=== PATIENT | female | born 1960 | race Caucasian/White ===

== ENCOUNTER → 2016-08-16 | Outpatient (CLI) | payer OTHER ==
--- NOTE | 2016-08-17 10:23 | MM ---
Reason for exam: screening (asymptomatic). Last mammogram was performed 1 year and 2 months ago. History: Patient is postmenopausal. Family history of breast cancer in mother at age 73 and breast cancer in sister at age 40. Benign MG stereo VAD BX LT of the left breast, July 02, 2013. Physical Findings: A clinical breast exam by your physician is recommended on an annual basis and results should be correlated with mammographic findings. MG Screening Mammo w CAD Bilateral CC and MLO view(s) were taken. Prior study comparison: June 05, 2015, bilateral MG screening mammo w CAD. May 30, 2014, bilateral MG diagnostic mammo w CAD JOHN. June 19, 2013, bilateral digital screening mammo w/CAD. There are scattered fibroglandular densities. Previous mammotome biopsy in the left breast. There is no discrete abnormality. ASSESSMENT: Benign, BI-RAD 2 RECOMMENDATION: Routine screening mammogram of both breasts in 1 year.
== END | disposition home or self-care (01) ==
LOC: RADMAMWWP 10:21
PROVIDERS: ATTEND Family Medicine
DX: Z12.31 Encounter for screening mammogram for malignant neoplasm of breast (principal)

== ENCOUNTER → 2016-09-01 | Outpatient (CLI) | payer OTHER ==
[2016-09-01 10:48] LABS: Ionized Calcium 5.5 mg/dL (4.5-5.3)
[2016-09-01 11:35] LABS: Calcium 10.3 mg/dL (8.4-10.2)
== END | disposition home or self-care (01) ==
LOC: LABWHC1 10:14
PROVIDERS: ATTEND Internal Medicine Endocrinology, Diabetes & Metabolism
DX: E04.1 Nontoxic single thyroid nodule (principal)
CPT/HCPCS: 36415; 82306; 82310; 82330; 83970; 84439; 84443; 84481; 86376

== ENCOUNTER 2016-09-14 07:35 | Day surgery (SDC) | payer OTHER ==
[2016-09-09 12:00] VITALS: BMI 25.0
[~2016-09-14 07:35] MED LIST: LACTATED RINGERS 1,000 ML IV SCH; LIDOCAINE 1% 20 ML VIAL (10MG/ML) FOR IV START INTRADERMA PRN
[2016-09-14 08:00] VITALS: TEMP 98
[2016-09-14] MEDS ORDERED: PROPOFOL 10 MG/ML 20 ML VIAL IV ONE (08:29)
[2016-09-14] MEDS ORDERED: LIDOCAINE 1% INJ 10MG/ML (20 ML MDV) ONE (08:29)
--- NOTE | 2016-09-14 08:34 | P.GSHP ---
History of Present Illness H&P Date: 09/14/16 CHIEF COMPLAINT: Colon screen HISTORY OF PRESENT ILLNESS: The patient is a 56-year-old female who presents for colon screen. Lower endoscopy was offered for further evaluation and management. PAST MEDICAL HISTORY: Please see list. PAST SURGICAL HISTORY: Please see list. MEDICATIONS: Please see list. ALLERGIES: Please see list. SOCIAL HISTORY: No illicit drug use FAMILY HISTORY: No reports of Crohn disease or ulcerative colitis. REVIEW OF ORGAN SYSTEMS: CONSTITUTIONAL: No reports of fevers or chills. PHYSICAL EXAM: VITAL SIGNS: Stable GENERAL: Well-developed pleasant in no acute distress. HEENT: No scleral icterus. Extraocular movements grossly intact. Moist buccal mucosa. NECK: Supple without lymphadenopathy. CHEST: Unlabored respirations. Equal bilateral excursions. CARDIOVASCULAR: Regular rate and rhythm. Distal 2+ pulses. ABDOMEN: Soft, nontender, nondistended. MUSCULOSKELETAL: No clubbing, cyanosis, or edema. ASSESSMENT: 1. Colon screen. PLAN: 1. Recommend proceeding with a lower endoscopy Past Medical History Past Medical History: Hypertension, Osteoarthritis (OA) Additional Past Medical History / Comment(s): hx. colon polyps, constipation, neck & back pain History of Any Multi-Drug Resistant Organisms: None Reported Past Surgical History: Breast Surgery, Hysterectomy, Orthopedic Surgery, Tubal Ligation Additional Past Surgical History / Comment(s): right breast bx., repair right arm fx., cyst removed neck, colonoscopy with polyp removed Past Anesthesia/Blood Transfusion Reactions: No Reported Reaction Past Psychological History: Depression Smoking Status: Never smoker Past Alcohol Use History: None Reported Past Drug Use History: None Reported - Past Family History Mother Family Medical History: Cancer Additional Family Medical History / Comment(s): Breast and Brain Cancer. Medications and Allergies Home Medications Medication Instructions Recorded Confirmed Type Aspirin 81 mg PO DAILY 04/27/15 09/14/16 History Calcium Carbonate/Vitamin D3 1 each PO DAILY 04/27/15 09/14/16 History [Calcium 600 + Vit D Tablet] Cyclobenzaprine [Flexeril] 10 mg PO HS 04/27/15 09/14/16 History Docusate [Colace] 100 mg PO DAILY 04/27/15 09/14/16 History HYDROcodone/APAP 7.5-325MG [[place] 1 tab PO Q6HR PRN 04/27/15 09/14/16 History 7.5-325] Lisinopril [Zestril] 10 mg PO QAM 04/27/15 09/14/16 History Loratadine [Claritin] 10 mg PO HS 04/27/15 09/14/16 History Polyethylene Glycol 3350 [Miralax] 17 gm PO DAILY 04/27/15 09/14/16 History Sertraline [Zoloft] 50 mg PO HS 09/14/16 09/14/16 History traZODone HCL 50 mg PO HS 09/14/16 09/14/16 History Allergies Allergy/AdvReac Type Severity Reaction Status Date / Time clindamycin HCl Allergy Rash/Hives Verified 09/09/16 11:34 [From Cleocin] clindamycin palmitate HCl Allergy Rash/Hives Verified 09/09/16 11:34 [From Cleocin] clindamycin phosphate Allergy Rash/Hives Verified 09/09/16 11:34 [From Cleocin] Sulfa (Sulfonamide Allergy Rash/Hives Verified 09/09/16 11:34 Antibiotics) Surgical - Exam Vital Signs Temp Pulse Resp BP Pulse Ox 98.0 F 97 14 135/73 98 09/14/16 07:58 09/14/16 07:58 09/14/16 07:58 09/14/16 07:58 09/14/16 07:58
[2016-09-14 09:12] VITALS: BP 102/70; PULSE 86; RESP 16
--- NOTE | 2016-09-14 10:15 | P.PCN ---
Date of Procedure: 09/14/16 Preoperative Diagnosis: Postoperative Diagnosis: Procedure(s) Performed: Implants: Indications for Procedure: Operative Findings: Description of Procedure: PREOPERATIVE DIAGNOSIS: Colonoscopy screening. Personal history of colon polyps. POSTOPERATIVE DIAGNOSIS: Colonoscopy screening. Personal history of colon polyps. Colon polyp, sigmoid colon. External hemorrhoids. OPERATION: Colonoscopy to the ileocecal valve and appendiceal orifice. Colonoscopy with cold forceps biopsy at 20 cm from the anal verge. SURGEON: Hamida Flanagan MD. ANESTHESIA: MAC. INDICATIONS: The patient is a 56-year-old female who presents for colonoscopy screening. Her last colonoscopy was performed in 2-3 years with severe colorectal polyps. Benefits and risks were described and informed consent was obtained. DESCRIPTION OF PROCEDURE: The patient had undergone Gatorade, MiraLAX and Dulcolax prep. She had been brought into the operating room and laid in the left lateral decubitus position. After adequate intravenous sedation, the rectum was examined with 2% lidocaine jelly. External hemorrhoids were encountered. The rectal tone was within normal limits. No lesions were palpated in the rectal vault. An Olympus colonoscope was advanced until the ileocecal valve and appendiceal orifice were clearly viewed. Abdominal wall pressure was required to advance the scope. The prep was excellent with clear visualization of the mucosal folds. The scope was removed with visualization of each mucosal fold. No scattered diverticulosis was encountered. At 20 cm from the anal verge, a 3 mm hyperplastic polyp was cold forceps biopsy to completion. No evidence of focal colitis was found. Grade 3 internal/external hemorrhoids without active bleeding or inflammation was found. The colon was desufflated. The patient had tolerated the procedure well. Withdrawal time was over 6 minutes. FINDINGS: Internal hemorrhoids, grade 3 External prolapsed hemorrhoids. At 20 cm from the anal verge, a 3 mm hyperplastic polyp was cold forceps biopsy to completion. No arteriovenous malformations. No focal colitis. RECOMMENDATIONS: Lower endoscopy in 3 years (2019) with high risk colon polyp history. Plan - Discharge Summary New Discharge Prescriptions: No Action Loratadine [Claritin] 10 mg PO HS Lisinopril [Zestril] 10 mg PO QAM HYDROcodone/APAP 7.5-325MG [[place] 7.5-325] 1 tab PO Q6HR PRN PRN Reason: Pain Cyclobenzaprine [Flexeril] 10 mg PO HS Polyethylene Glycol 3350 [Miralax] 17 gm PO DAILY Docusate [Colace] 100 mg PO DAILY Aspirin 81 mg PO DAILY Calcium Carbonate/Vitamin D3 [Calcium 600 + Vit D Tablet] 1 each PO DAILY traZODone HCL 50 mg PO HS Sertraline [Zoloft] 50 mg PO HS Discharge Medication List Aspirin 81 mg PO DAILY 04/27/15 [History] Calcium Carbonate/Vitamin D3 [Calcium 600 + Vit D Tablet] 1 each PO DAILY [History] Cyclobenzaprine [Flexeril] 10 mg PO HS 04/27/15 [History] Docusate [Colace] 100 mg PO DAILY 04/27/15 [History] HYDROcodone/APAP 7.5-325MG [[place] 7.5-325] 1 tab PO Q6HR PRN 04/27/15 [History] Lisinopril [Zestril] 10 mg PO QAM 04/27/15 [History] Loratadine [Claritin] 10 mg PO HS 04/27/15 [History] Polyethylene Glycol 3350 [Miralax] 17 gm PO DAILY 04/27/15 [History] Sertraline [Zoloft] 50 mg PO HS 09/14/16 [History] traZODone HCL 50 mg PO HS 09/14/16 [History] Follow up Appointment(s)/Referral(s): Hamida Flanagan MD [STAFF PHYSICIAN] - 09/27/16 10:40 am Patient Instructions/Handouts: *Surgery [facility] - (Anesthesia) Endoscopy Discharge Instructions, Colonoscopy (DC), Hemorrhoids (GEN), Colorectal Polyps (GEN) Discharge Disposition: HOME SELF-CARE
== END 2016-09-14 09:32 | disposition home or self-care (01) ==
LOC: ORWHC2ENDO 07:35
PROVIDERS: ATTEND Surgery Plastic and Reconstructive Surgery
DX: Z12.11 Encounter for screening for malignant neoplasm of colon (principal); K63.5 Polyp of colon; K64.2 Third degree hemorrhoids; K64.8 Other hemorrhoids; Z86.010 Personal history of colon polyps; I10 Essential (primary) hypertension; M19.90 Unspecified osteoarthritis, unspecified site; F32.9 Major depressive disorder, single episode, unspecified; Z79.82 Long term (current) use of aspirin; Z79.899 Other long term (current) drug therapy; Z88.1 Allergy status to other antibiotic agents; Z88.2 Allergy status to sulfonamides
CPT/HCPCS: 88305; 45380; J2001; J2704

== ENCOUNTER 2016-10-17 12:27 | Emergency (ER) | payer OTHER ==
[2016-10-17 12:37] VITALS: TEMP 98.4
[2016-10-17] MEDS ORDERED: RX INFO: IV CONTRAST WAS GIVEN 1 EACH MISC MISCELLANE PRN (14:10)
[2016-10-17] MEDS ORDERED: MORPHINE SULFATE 4 MG/ML SYRINGE IV STA (14:10)
--- NOTE | 2016-10-17 14:13 | ED ---
General Adult HPI - General Chief complaint: Abdominal Pain Stated complaint: Right Side Pain Time Seen by Provider: 10/17/16 14:05 Source: patient, RN notes reviewed Mode of arrival: ambulatory Limitations: no limitations - History of Present Illness Initial comments: Patient is a pleasant 36-year-old female presenting to the emergency Department with abdominal discomfort. Symptoms started towards the back and wrap around. There may be some minimal involvement of the left side of her majority of the problems on the right side. Patient did have colonoscopy done over a month ago. Symptoms have been present for the past 2 weeks. There was at least 2 weeks in between colonoscopy and onset of symptoms. No associated nausea vomiting. No constipation or diarrhea. No history of similar symptoms previously. No dysuria or hematuria. - Related Data Home Medications Medication Instructions Recorded Confirmed Aspirin 81 mg PO DAILY 04/27/15 10/17/16 Calcium Carbonate/Vitamin D3 1 each PO DAILY 04/27/15 10/17/16 [Calcium 600 + Vit D Tablet] Cyclobenzaprine [Flexeril] 10 mg PO HS 04/27/15 10/17/16 Docusate [Colace] 100 mg PO DAILY PRN 04/27/15 10/17/16 HYDROcodone/APAP 7.5-325MG [[place] 1 tab PO Q6HR PRN 04/27/15 10/17/16 7.5-325] Lisinopril [Zestril] 10 mg PO DAILY 04/27/15 10/17/16 Loratadine [Claritin] 10 mg PO HS 04/27/15 10/17/16 Sertraline [Zoloft] 50 mg PO HS 09/14/16 10/17/16 traZODone HCL 50 mg PO HS 09/14/16 10/17/16 Atorvastatin [Lipitor] 10 mg PO HS 10/17/16 10/17/16 cloNIDine HCL [Catapres] 0.1 mg PO BID 10/17/16 10/17/16 Previous Rx's Medication Instructions Recorded Bisacodyl [Dulcolax] 5 mg PO DAILY #30 tablet. 09/27/16 Allergies Allergy/AdvReac Type Severity Reaction Status Date / Time clindamycin HCl Allergy Rash/Hives Verified 10/17/16 14:33 [From Cleocin] clindamycin palmitate HCl Allergy Rash/Hives Verified 10/17/16 14:33 [From Cleocin] clindamycin phosphate Allergy Rash/Hives Verified 10/17/16 14:33 [From Cleocin] Sulfa (Sulfonamide Allergy Rash/Hives Verified 10/17/16 14:33 Antibiotics) Review of Systems ROS Statement: Those systems with pertinent positive or pertinent negative responses have been documented in the HPI. ROS Other: All systems not noted in ROS Statement are negative. Constitutional: Denies: fever Eyes: Denies: eye pain ENT: Denies: ear pain Respiratory: Denies: cough Cardiovascular: Denies: chest pain Endocrine: Denies: fatigue Gastrointestinal: Reports: abdominal pain. Denies: nausea, vomiting, diarrhea, constipation Genitourinary: Denies: dysuria, hematuria Musculoskeletal: Reports: back pain (Patient has chronic back pain however is also having some right-sided back pain associated with the abdominal pain) Skin: Denies: rash Neurological: Denies: weakness Past Medical History Past Medical History: GERD/Reflux, Hyperlipidemia, Hypertension Additional Past Medical History / Comment(s): hx. colon polyps, constipation, neck & back pain History of Any Multi-Drug Resistant Organisms: None Reported Past Surgical History: Breast Surgery, Hysterectomy, Orthopedic Surgery, Tubal Ligation Additional Past Surgical History / Comment(s): right breast bx., repair right arm fx., cyst removed neck, colonoscopy with polyp removed Past Anesthesia/Blood Transfusion Reactions: No Reported Reaction Smoking Status: Never smoker Past Alcohol Use History: None Reported Past Drug Use History: None Reported - Past Family History Mother Family Medical History: Cancer General Exam Limitations: no limitations General appearance: alert, in no apparent distress Head exam: Present: atraumatic Eye exam: Present: normal appearance, PERRL ENT exam: Present: normal oropharynx Neck exam: Present: normal inspection Respiratory exam: Present: normal lung sounds bilaterally Cardiovascular Exam: Present: regular rate, normal rhythm Expanded Peripheral pulses: 2+: Dorsalis Pedis (R), Dorsalis Pedis (L) GI/Abdominal exam: Present: soft, tenderness (Mild tenderness suprapubic and right upper quadrant. Moderate tenderness right lower quadrant), guarding ( Mild guarding right lower quadrant), normal bowel sounds. Absent: distended, rebound, rigid, pulsatile mass Extremities exam: Present: normal inspection Back exam: Present: tenderness (Mild tenderness right paralumbar region) Neurological exam: Present: alert Psychiatric exam: Present: normal affect, normal mood Skin exam: Present: normal color Course Vital Signs 10/17/16 12:35 Temperature 98.4 F Pulse Rate 100 Respiratory 18 Rate Blood Pressure 135/90 O2 Sat by Pulse 97 Oximetry Medical Decision Making - Medical Decision Making Patient reevaluated and improved. Abdomen soft with mild right upper quadrant tenderness. Patient states she does have known history of gallstones. Patient is comfortable with discharge and agreeable to follow-up. - Lab Data Result diagrams: 10/17/16 14:35 10/17/16 14:35 Lab Results 10/17/16 10/17/16 10/17/16 Range/Units 14:35 14:35 14:35 WBC 5.7 (3.8-10.6) k/uL RBC 4.57 (3.80-5.40) m/uL Hgb 13.1 (11.4-16.0) gm/dL Hct 41.5 (34.0-46.0) % MCV 90.8 (80.0-100.0) fL MCH 28.6 (25.0-35.0) pg MCHC 31.5 (31.0-37.0) g/dL RDW 14.0 (11.5-15.5) % Plt Count 291 (150-450) k/uL Neutrophils % 58 % Lymphocytes % 33 % Monocytes % 5 % Eosinophils % 2 % Basophils % 1 % Neutrophils # 3.3 (1.3-7.7) k/uL Lymphocytes # 1.9 (1.0-4.8) k/uL Monocytes # 0.3 (0-1.0) k/uL Eosinophils # 0.1 (0-0.7) k/uL Basophils # 0.0 (0-0.2) k/uL PT 10.0 (9.0-12.0) sec INR 1.0 (<1.2) APTT 24.3 (22.0-30.0) sec Sodium 141 (137-145) mmol/L Potassium 4.0 (3.5-5.1) mmol/L Chloride 105 (98-107) mmol/L Carbon Dioxide 26 (22-30) mmol/L Anion Gap 10 mmol/L BUN 8 (7-17) mg/dL Creatinine 0.68 (0.52-1.04) mg/dL Est GFR (MDRD) Af Amer >60 (>60 ml/min/1.73 sqM) Est GFR (MDRD) Non-Af >60 (>60 ml/min/1.73 sqM) Glucose 84 (74-99) mg/dL Calcium 10.0 (8.4-10.2) mg/dL Total Bilirubin 0.3 (0.2-1.3) mg/dL AST 23 (14-36) U/L ALT 34 (9-52) U/L Alkaline Phosphatase 77 (38-126) U/L Total Protein 7.6 (6.3-8.2) g/dL Albumin 4.4 (3.5-5.0) g/dL Amylase 47 (30-110) U/L Lipase 50 (23-300) U/L Urine Color Urine Appearance (Clear) Urine pH (5.0-8.0) Ur Specific [place] (1.001-1.035) Urine Protein (Negative) Urine Glucose (UA) (Negative) Urine Ketones (Negative) Urine Blood (Negative) Urine Nitrite (Negative) Urine Bilirubin (Negative) Urine Urobilinogen (<2.0) mg/dL Ur Leukocyte Esterase (Negative) Urine WBC (0-5) /hpf Ur Squamous Epith Cells (0-4) /hpf Urine Bacteria (None) /hpf 10/17/16 Range/Units 14:35 WBC (3.8-10.6) k/uL RBC (3.80-5.40) m/uL Hgb (11.4-16.0) gm/dL Hct (34.0-46.0) % MCV (80.0-100.0) fL MCH (25.0-35.0) pg MCHC (31.0-37.0) g/dL RDW (11.5-15.5) % Plt Count (150-450) k/uL Neutrophils % % Lymphocytes % % Monocytes % % Eosinophils % % Basophils % % Neutrophils # (1.3-7.7) k/uL Lymphocytes # (1.0-4.8) k/uL Monocytes # (0-1.0) k/uL Eosinophils # (0-0.7) k/uL Basophils # (0-0.2) k/uL PT (9.0-12.0) sec INR (<1.2) APTT (22.0-30.0) sec Sodium (137-145) mmol/L Potassium (3.5-5.1) mmol/L Chloride (98-107) mmol/L Carbon Dioxide (22-30) mmol/L Anion Gap mmol/L BUN (7-17) mg/dL Creatinine (0.52-1.04) mg/dL Est GFR (MDRD) Af Amer (>60 ml/min/1.73 sqM) Est GFR (MDRD) Non-Af (>60 ml/min/1.73 sqM) Glucose (74-99) mg/dL Calcium (8.4-10.2) mg/dL Total Bilirubin (0.2-1.3) mg/dL AST (14-36) U/L ALT (9-52) U/L Alkaline Phosphatase (38-126) U/L Total Protein (6.3-8.2) g/dL Albumin (3.5-5.0) g/dL Amylase (30-110) U/L Lipase (23-300) U/L Urine Color Light Yellow Urine Appearance Clear (Clear) Urine pH 7.0 (5.0-8.0) Ur Specific [place] 1.005 (1.001-1.035) Urine Protein Negative (Negative) Urine Glucose (UA) Negative (Negative) Urine Ketones Negative (Negative) Urine Blood Negative (Negative) Urine Nitrite Negative (Negative) Urine Bilirubin Negative (Negative) Urine Urobilinogen <2.0 (<2.0) mg/dL Ur Leukocyte Esterase Large H (Negative) Urine WBC 9 H (0-5) /hpf Ur Squamous Epith Cells 3 (0-4) /hpf Urine Bacteria Occasional H (None) /hpf - Radiology Data Radiology results: report reviewed (Computed tomography scan abdomen pelvis shows cholelithiasis and spondylosis with grade 1 anterolisthesis L5-S1.) Disposition Clinical Impression: Abdominal pain, Cholelithiasis Disposition: HOME SELF-CARE Condition: Stable Instructions: Abdominal Pain (ED), Gallstones (ED) Additional Instructions: Please follow-up with primary care physician and surgeon this week. Return for increased pain, fever, vomiting, worsening or changing symptoms or other concerns. Referrals: Elton Kessler DO [Primary Care Provider] - 1-2 days Lynn Greenberg MD [STAFF PHYSICIAN] - 1-2 days Time of Disposition: 16:08
[2016-10-17 14:50] LABS: Appearance,Urine Clear (Clear); Bacteria,Urine Occasional /hpf; Bilirubin,Urine Negative (Negative); Glucose,Urine (UA) Negative (Negative); Ketones,Urine Negative (Negative); Leukocyte Esterase,Urine Large (Negative); Nitrite,Urine Negative (Negative); Particle Count 4251; Protein,Urine Negative (Negative); Specific Gravity,Urine 1.005 (1.001-1.035); Squamous Epithelial Cell,Urine 3 /hpf (0-4); UA Billing (MACRO vs. MICRO) MICRO; Urobilinogen,Urine <2.0 mg/dL (<2.0); WBC,Urine 9 /hpf (0-5)
[2016-10-17 14:51] LABS: Basophils % (A) 1 %; CH 29.8; Eosinophils # (A) 0.1 k/uL (0-0.7); Eosinophils % (A) 2 %; HCT 41.5 % (34.0-46.0); HGB 13.1 gm/dL (11.4-16.0); Luc # (Auto) 0.09; Luc % (Auto) 2; Lymphocytes # (A) 1.9 k/uL (1.0-4.8); Lymphocytes % (A) 33 %; MCH 28.6 pg (25.0-35.0); MCHC 31.5 g/dL (31.0-37.0); MCV 90.8 fL (80.0-100.0); Mean Platelet Volume 7.1; Monocytes # (A) 0.3 k/uL (0-1.0); Monocytes % (A) 5 %; Neutrophils # (A) 3.3 k/uL (1.3-7.7); Neutrophils % (A) 58 %; RBC 4.57 m/uL (3.80-5.40); WBC 5.7 k/uL (3.8-10.6); WBC (Perox) 5.64
[2016-10-17 14:58] LABS: ALT 34 U/L (9-52); AST 23 U/L (14-36); Alkaline Phosphatase 77 U/L (38-126); Amylase 47 U/L (30-110); Anion Gap 10 mmol/L; Blood Urea Nitrogen 8 mg/dL (7-17); Carbon Dioxide 26 mmol/L (22-30); Chloride 105 mmol/L (98-107); Glucose 84 mg/dL (74-99); Non-African American GFR(MDRD) >60 (>60 ml/min/1.73 sqM); Partial Thromboplastin Time 24.3 sec (22.0-30.0); Sodium 141 mmol/L (137-145); Total Bilirubin 0.3 mg/dL (0.2-1.3); Total Protein 7.6 g/dL (6.3-8.2)
--- NOTE | 2016-10-17 15:50 | CT ---
EXAMINATION TYPE: CT abdomen pelvis w con DATE OF EXAM: 10/17/2016 COMPARISON: NONE HISTORY: Right sided pain x [address] DLP: 1341.00 mGycm Automated exposure control for dose reduction was used. CONTRAST: CT scan of the abdomen pelvis is performed with IV Contrast, patient injected with 100 mL of Omnipaqu e 300. FINDINGS- LUNG BASES- No significant abnormality is appreciated. LIVER/GB-multiple gallstones noted. PANCREAS- No gross abnormality is seen. SPLEEN- No gross abnormality is seen. ADRENALS- No gross abnormality is seen. KIDNEYS/BLADDER- no hydronephrosis nephrolithiasis or renal mass. BOWEL- no bowel dilatation. Normal appendix. Cecum does extend across the midline within the pelvis from right to left. LYMPH NODES- No greater than 1cm abdominal or pelvic lymph nodes are appreciated. OSSEOUS STRUCTURES-degenerative change of the spine. Marked facet arthropathy lower lumbar spine. Fin dings suspicious for pars stress defect of L5 with minimal anterolisthesis. Arthropathy of the hips. OTHER- vascular phleboliths in the pelvic. Vascular calcifications noted. IMPRESSION- 1. Cholelithiasis. 2. Findings suggestive of bilateral spondylolysis with minimal grade 1 anterolisthesis L5 on S1.
[2016-10-17 16:34] VITALS: BP 126/75; PULSE 94; RESP 16
== END 2016-10-17 16:33 | disposition home or self-care (01) ==
LOC: EC 12:27
DX: K80.20 Calculus of gallbladder without cholecystitis without obstruction (principal); M43.16 Spondylolisthesis, lumbar region; E78.5 Hyperlipidemia, unspecified; I10 Essential (primary) hypertension; Z90.710 Acquired absence of both cervix and uterus; Z98.51 Tubal ligation status; Z79.82 Long term (current) use of aspirin; Z79.899 Other long term (current) drug therapy
CPT/HCPCS: 99284 ×2; 96374 ×2; 36415; 80053; 82150; 83690; 85025; 85610; 85730; 81001; 87086; 74177; J2270; Q9967

== ENCOUNTER 2016-10-19 13:22 | Emergency (ER) | payer OTHER ==
[2016-10-19 13:39] VITALS: RESP 18
[2016-10-19] MEDS ORDERED: SODIUM CHLORIDE 0.9% 2,000 ML IV STA (14:52)
[2016-10-19] MEDS ORDERED: HYDROmorphone 1 MG/ML 1 ML SYRINGE IVP STA (15:11)
--- NOTE | 2016-10-19 15:18 | ED ---
Abdominal Pain HPI - General Chief Complaint: Abdominal Pain Stated Complaint: Gall bladder pain Time Seen by Provider: 10/19/16 14:21 Source: patient, RN notes reviewed, old records reviewed Mode of arrival: wheelchair Limitations: no limitations - History of Present Illness Initial Comments: Is a 56-year-old female presents emergency Department chief complaint of increased right upper quadrant pain. Patient seen in emergency department 2 days ago and was diagnosed with cholelithiasis. Patient states that the pain is now unbearable. She reports she called the surgeon to follow-up however the surgeon is out of town and she cannot have an appointment until mid October. Patient states that she is unable to eat anything without severe pain. She states it mainly is in the right upper quadrant occasionally radiate towards her back. She denies any vomiting but feels extremely nauseated. Denies any change in her bowel movements. - Related Data Home Medications Medication Instructions Recorded Confirmed Aspirin 81 mg PO DAILY 04/27/15 10/19/16 Calcium Carbonate/Vitamin D3 1 each PO DAILY 04/27/15 10/19/16 [Calcium 600 + Vit D Tablet] Cyclobenzaprine [Flexeril] 10 mg PO HS 04/27/15 10/19/16 Docusate [Colace] 100 mg PO DAILY PRN 04/27/15 10/19/16 HYDROcodone/APAP 7.5-325MG [[place] 1 tab PO Q6HR PRN 04/27/15 10/19/16 7.5-325] Lisinopril [Zestril] 10 mg PO DAILY 04/27/15 10/19/16 Loratadine [Claritin] 10 mg PO HS 04/27/15 10/19/16 Sertraline [Zoloft] 50 mg PO HS 09/14/16 10/19/16 traZODone HCL 50 mg PO HS 09/14/16 10/19/16 Atorvastatin [Lipitor] 10 mg PO HS 10/17/16 10/19/16 cloNIDine HCL [Catapres] 0.1 mg PO BID 10/17/16 10/19/16 Previous Rx's Medication Instructions Recorded Bisacodyl [Dulcolax] 5 mg PO DAILY #30 tablet. 09/27/16 HYDROcodone/APAP 5-325MG [[place] 1 tab PO Q6HR PRN #12 tab 10/19/16 5-325] Naproxen 500 mg PO BID #20 tablet 10/19/16 Ondansetron Odt [Zofran Odt] 4 mg PO Q8HR PRN #12 tab 10/19/16 Allergies Allergy/AdvReac Type Severity Reaction Status Date / Time clindamycin HCl Allergy Rash/Hives Verified 10/19/16 14:50 [From Cleocin] clindamycin palmitate HCl Allergy Rash/Hives Verified 10/19/16 14:50 [From Cleocin] clindamycin phosphate Allergy Rash/Hives Verified 10/19/16 14:50 [From Cleocin] Sulfa (Sulfonamide Allergy Rash/Hives Verified 10/19/16 14:50 Antibiotics) Review of Systems ROS Statement: Those systems with pertinent positive or pertinent negative responses have been documented in the HPI. ROS Other: All systems not noted in ROS Statement are negative. Past Medical History Past Medical History: GERD/Reflux, Hyperlipidemia, Hypertension Additional Past Medical History / Comment(s): hx. colon polyps, constipation, neck & back pain History of Any Multi-Drug Resistant Organisms: None Reported Past Surgical History: Breast Surgery, Hysterectomy, Orthopedic Surgery, Tubal Ligation Additional Past Surgical History / Comment(s): right breast bx., repair right arm fx., cyst removed neck, colonoscopy with polyp removed Past Anesthesia/Blood Transfusion Reactions: No Reported Reaction Past Psychological History: No Psychological Hx Reported Smoking Status: Never smoker Past Alcohol Use History: None Reported Past Drug Use History: None Reported - Past Family History Mother Family Medical History: Cancer General Exam - General Exam Comments Initial Comments: This is a 56-year-old female. Patient is on appear to be in any acute distress. Limitations: no limitations General appearance: alert, in no apparent distress Head exam: Present: atraumatic, normocephalic, normal inspection Eye exam: Present: normal appearance, PERRL, EOMI. Absent: scleral icterus, conjunctival injection, periorbital swelling ENT exam: Present: normal exam, mucous membranes moist Neck exam: Present: normal inspection. Absent: tenderness, meningismus, lymphadenopathy Respiratory exam: Present: normal lung sounds bilaterally. Absent: respiratory distress, wheezes, rales, rhonchi, stridor Cardiovascular Exam: Present: regular rate, normal rhythm, normal heart sounds. Absent: systolic murmur, diastolic murmur, rubs, gallop, clicks GI/Abdominal exam: Present: soft, tenderness (Patient has some right upper quadrant tenderness on deep palpation.), normal bowel sounds. Absent: distended , guarding, rebound, rigid Extremities exam: Present: normal inspection, full ROM, normal capillary refill. Absent: tenderness, pedal edema, joint swelling, calf tenderness Back exam: Present: normal inspection Neurological exam: Present: alert, oriented X3, CN II-XII intact Psychiatric exam: Present: normal affect, normal mood Skin exam: Present: warm, dry, intact, normal color. Absent: rash Course Vital Signs 10/19/16 13:37 Temperature 98.0 F Pulse Rate 95 Respiratory 18 Rate Blood Pressure 123/83 O2 Sat by Pulse 98 Oximetry Medical Decision Making - Medical Decision Making 56-year-old female with chief complaint of increased right upper quadrant abdominal pain. She was seen here yesterday and diagnosed with cholelithiasis after CAT scan. She reports that she try to follow-up with a surgeon sooner but they could not get her in. They stated that she needed to come to the emergency department if pain is worsening. The pain getting worse she did sign 7 today. Blood work was reviewed and was similar compared to 2 days ago. No evidence of leukocytosis. A bladder ultrasound shows no evidence of acute cholecystitis, normal gallbladder wall thickening. No obstructing or dilated common bile duct. Patient will be discharged at this time with a prescription for pain medication. Discussed the importance of biliary colic diet. Patient agrees to treatment plan will comply. Return parameters were discussed. - Lab Data Result diagrams: 10/19/16 15:04 10/19/16 15:04 Lab Results 10/19/16 10/19/16 10/19/16 Range/Units 15:04 15:04 15:04 WBC 5.8 (3.8-10.6) k/uL RBC 4.59 (3.80-5.40) m/uL Hgb 13.6 (11.4-16.0) gm/dL Hct 40.7 (34.0-46.0) % MCV 88.6 (80.0-100.0) fL MCH 29.6 (25.0-35.0) pg MCHC 33.4 (31.0-37.0) g/dL RDW 13.4 (11.5-15.5) % Plt Count 280 (150-450) k/uL Neutrophils % 60 % Lymphocytes % 30 % Monocytes % 5 % Eosinophils % 2 % Basophils % 1 % Neutrophils # 3.5 (1.3-7.7) k/uL Lymphocytes # 1.8 (1.0-4.8) k/uL Monocytes # 0.3 (0-1.0) k/uL Eosinophils # 0.1 (0-0.7) k/uL Basophils # 0.0 (0-0.2) k/uL PT 10.1 (9.0-12.0) sec INR 1.0 (<1.2) APTT 25.0 (22.0-30.0) sec Sodium 141 (137-145) mmol/L Potassium 4.2 (3.5-5.1) mmol/L Chloride 105 (98-107) mmol/L Carbon Dioxide 27 (22-30) mmol/L Anion Gap 9 mmol/L BUN 10 (7-17) mg/dL Creatinine 0.70 (0.52-1.04) mg/dL Est GFR (MDRD) Af Amer >60 (>60 ml/min/1.73 sqM) Est GFR (MDRD) Non-Af >60 (>60 ml/min/1.73 sqM) Glucose 85 (74-99) mg/dL Calcium 10.2 (8.4-10.2) mg/dL Total Bilirubin 0.5 (0.2-1.3) mg/dL AST 25 (14-36) U/L ALT 31 (9-52) U/L Alkaline Phosphatase 80 (38-126) U/L Total Protein 7.3 (6.3-8.2) g/dL Albumin 4.4 (3.5-5.0) g/dL Amylase 37 (30-110) U/L Lipase 43 (23-300) U/L Urine Color Urine Appearance (Clear) Urine pH (5.0-8.0) Ur Specific [place] (1.001-1.035) Urine Protein (Negative) Urine Glucose (UA) (Negative) Urine Ketones (Negative) Urine Blood (Negative) Urine Nitrite (Negative) Urine Bilirubin (Negative) Urine Urobilinogen (<2.0) mg/dL Ur Leukocyte Esterase (Negative) Urine RBC (0-5) /hpf Urine WBC (0-5) /hpf Ur Squamous Epith Cells (0-4) /hpf 10/19/16 Range/Units 15:04 WBC (3.8-10.6) k/uL RBC (3.80-5.40) m/uL Hgb (11.4-16.0) gm/dL Hct (34.0-46.0) % MCV (80.0-100.0) fL MCH (25.0-35.0) pg MCHC (31.0-37.0) g/dL RDW (11.5-15.5) % Plt Count (150-450) k/uL Neutrophils % % Lymphocytes % % Monocytes % % Eosinophils % % Basophils % % Neutrophils # (1.3-7.7) k/uL Lymphocytes # (1.0-4.8) k/uL Monocytes # (0-1.0) k/uL Eosinophils # (0-0.7) k/uL Basophils # (0-0.2) k/uL PT (9.0-12.0) sec INR (<1.2) APTT (22.0-30.0) sec Sodium (137-145) mmol/L Potassium (3.5-5.1) mmol/L Chloride (98-107) mmol/L Carbon Dioxide (22-30) mmol/L Anion Gap mmol/L BUN (7-17) mg/dL Creatinine (0.52-1.04) mg/dL Est GFR (MDRD) Af Amer (>60 ml/min/1.73 sqM) Est GFR (MDRD) Non-Af (>60 ml/min/1.73 sqM) Glucose (74-99) mg/dL Calcium (8.4-10.2) mg/dL Total Bilirubin (0.2-1.3) mg/dL AST (14-36) U/L ALT (9-52) U/L Alkaline Phosphatase (38-126) U/L Total Protein (6.3-8.2) g/dL Albumin (3.5-5.0) g/dL Amylase (30-110) U/L Lipase (23-300) U/L Urine Color Light Yellow Urine Appearance Clear (Clear) Urine pH 7.0 (5.0-8.0) Ur Specific [place] 1.004 (1.001-1.035) Urine Protein Negative (Negative) Urine Glucose (UA) Negative (Negative) Urine Ketones Negative (Negative) Urine Blood Negative (Negative) Urine Nitrite Negative (Negative) Urine Bilirubin Negative (Negative) Urine Urobilinogen <2.0 (<2.0) mg/dL Ur Leukocyte Esterase Large H (Negative) Urine RBC 1 (0-5) /hpf Urine WBC 7 H (0-5) /hpf Ur Squamous Epith Cells 4 (0-4) /hpf - Radiology Data Radiology results: report reviewed Gallbladder ultrasound shows evidence of cholelithiasis. No evidence of acute cholecystitis, no evidence of gallbladder wall thickening. Disposition Clinical Impression: Cholelithiases, Biliary colic Disposition: HOME SELF-CARE Condition: Good Instructions: Biliary Colic (ED), Gallstones (ED) Additional Instructions: Patient advised to follow-up with primary care physician and forensic specialist. Patient needs to avoid if diet with greasy foods. Take the medications as prescribed. Return to emergency department if any alarming signs or symptoms occur. Prescriptions: HYDROcodone/APAP 5-325MG [[place] 5-325] 1 tab PO Q6HR PRN #12 tab PRN Reason: Pain Naproxen 500 mg PO BID #20 tablet Ondansetron Odt [Zofran Odt] 4 mg PO Q8HR PRN #12 tab PRN Reason: Nausea Referrals: Elton Kessler DO [Primary Care Provider] - 1-2 days Sandi Fuller DO [Doctor of Osteopathic Medicine] - 1-2 days Time of Disposition: 16:30
[2016-10-19 15:22] LABS: Appearance,Urine Clear (Clear); Bilirubin,Urine Negative (Negative); Glucose,Urine (UA) Negative (Negative); Ketones,Urine Negative (Negative); Leukocyte Esterase,Urine Large (Negative); Nitrite,Urine Negative (Negative); Particle Count 2653; Protein,Urine Negative (Negative); RBC,Urine 1 /hpf (0-5); Specific Gravity,Urine 1.004 (1.001-1.035); Squamous Epithelial Cell,Urine 4 /hpf (0-4); UA Billing (MACRO vs. MICRO) MICRO; Urobilinogen,Urine <2.0 mg/dL (<2.0); WBC,Urine 7 /hpf (0-5)
[2016-10-19 15:28] LABS: ALT 31 U/L (9-52); AST 25 U/L (14-36); Alkaline Phosphatase 80 U/L (38-126); Amylase 37 U/L (30-110); Anion Gap 9 mmol/L; Blood Urea Nitrogen 10 mg/dL (7-17); Calcium 10.2 mg/dL (8.4-10.2); Carbon Dioxide 27 mmol/L (22-30); Chloride 105 mmol/L (98-107); Glucose 85 mg/dL (74-99); Non-African American GFR(MDRD) >60 (>60 ml/min/1.73 sqM); Potassium 4.2 mmol/L (3.5-5.1); Sodium 141 mmol/L (137-145); Total Bilirubin 0.5 mg/dL (0.2-1.3); Total Protein 7.3 g/dL (6.3-8.2)
[2016-10-19 15:29] LABS: Prothrombin Time 10.1 sec (9.0-12.0)
[2016-10-19 15:30] LABS: Basophils % (A) 1 %; CHCM 32.9; Eosinophils # (A) 0.1 k/uL (0-0.7); Eosinophils % (A) 2 %; HCT 40.7 % (34.0-46.0); HDW 2.21; HGB 13.6 gm/dL (11.4-16.0); Luc # (Auto) 0.11; Luc % (Auto) 2; Lymphocytes # (A) 1.8 k/uL (1.0-4.8); Lymphocytes % (A) 30 %; MCH 29.6 pg (25.0-35.0); MCHC 33.4 g/dL (31.0-37.0); MCV 88.6 fL (80.0-100.0); Mean Platelet Volume 6.8; Monocytes # (A) 0.3 k/uL (0-1.0); Monocytes % (A) 5 %; Neutrophils # (A) 3.5 k/uL (1.3-7.7); Neutrophils % (A) 60 %; RBC 4.59 m/uL (3.80-5.40); RDW 13.4 % (11.5-15.5); WBC 5.8 k/uL (3.8-10.6); WBC (Perox) 5.49
--- NOTE | 2016-10-19 15:51 | US ---
EXAMINATION TYPE: US gallbladder DATE OF EXAM: 10/19/2016 COMPARISON: CT 10/17/2016 CLINICAL HISTORY: Pain. EXAM MEASUREMENTS: Liver Length: 14.3 cm Gallbladder Wall: 0.2 cm CBD: 0.3 cm Right Kidney: 10.8 x 4.4 x 4.1 cm Pancreas: Obscured by bowel gas Liver: wnl as visualized, limited evaluation due to overlying bowel gas Gallbladder: Multiple echogenic foci visualzied Evidence for sonographic Huertas's sign: Yes CBD: wnl as visualized, distal portion obscured by bowel gas Right Kidney: No hydronephrosis or masses seen IMPRESSION: 1. Cholelithiasis.
[2016-10-19 16:47] VITALS: BP 128/79; PULSE 82; TEMP 98.3
== END 2016-10-19 16:42 | disposition home or self-care (01) ==
LOC: EC 13:22
DX: K80.20 Calculus of gallbladder without cholecystitis without obstruction (principal); K80.50 Calculus of bile duct without cholangitis or cholecystitis without obstruction; E78.5 Hyperlipidemia, unspecified; I10 Essential (primary) hypertension; Z79.82 Long term (current) use of aspirin; Z79.899 Other long term (current) drug therapy; Z88.1 Allergy status to other antibiotic agents; Z88.2 Allergy status to sulfonamides; Z87.39 Personal history of other diseases of the musculoskeletal system and connective tissue
CPT/HCPCS: 99284; 96374; 96361; 36415; 80053; 82150; 83690; 85025; 85610; 85730; 81001; 76705; J1170

== ENCOUNTER → 2017-07-10 | Outpatient (CLI) | payer OTHER ==
[2017-07-10 10:21] LABS: Ionized Calcium 5.4 mg/dL (4.5-5.3)
[2017-07-10 10:29] LABS: Phosphorus 3.2 mg/dL (2.5-4.5)
[2017-07-10 10:42] LABS: T4, Free (Free Thyroxine) 0.94 ng/dL (0.78-2.19)
[2017-07-10 17:15] LABS: Vitamin D 25 Hydroxy 37.4 ng/mL (30.0-100.0)
== END ==
LOC: LABWHC1 09:29
PROVIDERS: ATTEND Internal Medicine Endocrinology, Diabetes & Metabolism
DX: E04.2 Nontoxic multinodular goiter (principal); E21.3 Hyperparathyroidism, unspecified; M89.9 Disorder of bone, unspecified
CPT/HCPCS: 36415; 82306; 82310; 82330; 83735; 83970; 84100; 84439; 84443

== ENCOUNTER → 2018-03-12 | Outpatient (CLI) | payer OTHER ==
--- NOTE | 2018-03-17 08:51 | MM ---
Reason for exam: screening (asymptomatic). Last mammogram was performed 1 year and 7 months ago. History: Patient is postmenopausal. Family history of breast cancer in mother at age 73 and breast cancer in sister at age 40. Benign MG stereo VAD BX LT of the left breast, July 02, 2013. MG Screening Mammo w CAD Bilateral CC and MLO view(s) were taken. Prior study comparison: August 16, 2016, bilateral MG screening mammo w CAD. June 05, 2015, bilateral MG screening mammo w CAD. The breast tissue is heterogeneously dense. This may lower the sensitivity of mammography. Left breast previous mammotome biopsy. No discrete abnormality. ASSESSMENT: Benign, BI-RAD 2 RECOMMENDATION: Routine screening mammogram of both breasts in 1 year.
== END ==
LOC: RADMAMWWP 08:33
PROVIDERS: ATTEND Family Medicine
DX: Z12.31 Encounter for screening mammogram for malignant neoplasm of breast (principal)
CPT/HCPCS: 77067

== ENCOUNTER → 2019-02-06 | Outpatient (CLI) | payer OTHER ==
--- NOTE | 2019-02-07 07:52 | XR ---
Right foot HISTORY: Right foot pain 3 views of the right foot Bone mineralization, joint spaces and alignment are maintained. No fracture or dislocation. There is a plantar spur IMPRESSION: Plantar calcaneal spur.
== END | disposition home or self-care (01) ==
LOC: RADXRMAIN 10:34
PROVIDERS: ATTEND Family Medicine
DX: M77.31 Calcaneal spur, right foot (principal); M79.672 Pain in left foot

== ENCOUNTER → 2019-05-14 | Outpatient (CLI) | payer OTHER ==
--- NOTE | 2019-05-15 10:00 | MM ---
Reason for exam: screening (asymptomatic). Last mammogram was performed 1 year and 2 months ago. History: Patient is postmenopausal. Family history of breast cancer in mother at age 73 and breast cancer in sister at age 40. Benign MG stereo VAD BX LT of the left breast, July 02, 2013. Physical Findings: A clinical breast exam by your physician is recommended on an annual basis and results should be correlated with mammographic findings. MG Screening Mammo w CAD Bilateral CC and MLO view(s) were taken. Prior study comparison: March 12, 2018, bilateral MG screening mammo w CAD. August 16, 2016, bilateral MG screening mammo w CAD. There are scattered fibroglandular densities. No suspicious abnormality. Left biopsy marker noted. No significant changes when compared with prior studies. ASSESSMENT: Negative, BI-RAD 1 RECOMMENDATION: Routine screening mammogram of both breasts in 1 year.
== END | disposition home or self-care (01) ==
LOC: RADMAMWWP 14:32
PROVIDERS: ATTEND Family Medicine
DX: Z12.31 Encounter for screening mammogram for malignant neoplasm of breast (principal)
CPT/HCPCS: 77067

== ENCOUNTER 2019-12-26 07:15 | Day surgery (SDC) | payer OTHER ==
--- NOTE | 2019-12-26 07:03 | P.GSHP ---
History of Present Illness H&P Date: 12/26/19 CHIEF COMPLAINT: Colon screen HISTORY OF PRESENT ILLNESS: The patient is a 59-year-old female who presents for colon screen. Lower endoscopy was offered for further evaluation and management. PAST MEDICAL HISTORY: Please see list. PAST SURGICAL HISTORY: Please see list. MEDICATIONS: Please see list. ALLERGIES: Please see list. SOCIAL HISTORY: No illicit drug use FAMILY HISTORY: No reports of Crohn disease or ulcerative colitis. REVIEW OF ORGAN SYSTEMS: CONSTITUTIONAL: No reports of fevers or chills. PHYSICAL EXAM: VITAL SIGNS: Stable GENERAL: Well-developed pleasant in no acute distress. HEENT: No scleral icterus. Extraocular movements grossly intact. Moist buccal mucosa. NECK: Supple without lymphadenopathy. CHEST: Unlabored respirations. Equal bilateral excursions. CARDIOVASCULAR: Regular rate and rhythm. Distal 2+ pulses. ABDOMEN: Soft, nontender, nondistended. MUSCULOSKELETAL: No clubbing, cyanosis, or edema. ASSESSMENT: 1. Colon screen. PLAN: 1. Recommend proceeding with a lower endoscopy Past Medical History Past Medical History: GERD/Reflux, Hyperlipidemia, Hypertension Additional Past Medical History / Comment(s): hx. colon polyps, constipation, neck & back pain History of Any Multi-Drug Resistant Organisms: None Reported Past Surgical History: Breast Surgery, Hysterectomy, Orthopedic Surgery, Tubal Ligation Additional Past Surgical History / Comment(s): right breast bx., repair right arm fx., cyst removed neck, colonoscopy with polyp removed Past Anesthesia/Blood Transfusion Reactions: No Reported Reaction Smoking Status: Never smoker - Past Family History Mother Family Medical History: Cancer Additional Family Medical History / Comment(s): breast,brain Father Family Medical History: Renal Disease Medications and Allergies Home Medications Medication Instructions Recorded Confirmed Type Aspirin 81 mg PO DAILY 04/27/15 12/24/19 History Cyclobenzaprine [Flexeril] 10 mg PO HS 04/27/15 12/24/19 History Loratadine [Claritin] 10 mg PO DAILY 04/27/15 12/24/19 History lisinopriL [Zestril] 10 mg PO QAM 04/27/15 12/24/19 History Atorvastatin [Lipitor] 10 mg PO HS 10/17/16 12/24/19 History cloNIDine HCL [Catapres] 0.1 mg PO HS 10/17/16 12/24/19 History Cholecalciferol [Vitamin D3 (25 1,000 unit PO DAILY 12/24/19 12/24/19 History Mcg = 1000 Iu)] Fluticasone Nasal [place] [Flonase 2 spr EA NOSTRIL DAILY 12/24/19 12/24/19 History Nasal [place]] Ibuprofen [Motrin] 600 mg PO Q6HR PRN 12/24/19 12/24/19 History Allergies Allergy/AdvReac Type Severity Reaction Status Date / Time clindamycin HCl Allergy Rash/Hives Verified 12/24/19 09:42 [From Cleocin] clindamycin palmitate HCl Allergy Rash/Hives Verified 12/24/19 09:42 [From Cleocin] clindamycin phosphate Allergy Rash/Hives Verified 12/24/19 09:42 [From Cleocin] Sulfa (Sulfonamide Allergy Rash/Hives Verified 12/24/19 09:42 Antibiotics)
[2019-12-26 07:45] VITALS: TEMP 98.1
[2019-12-26] MEDS ORDERED: LACTATED RINGERS 1,000 ML IV SCH (07:50)
[2019-12-26] MEDS ORDERED: LIDOCAINE 1% (10MG/ML) FOR IV START INTRADERMA ONE (07:51)
[2019-12-26] MEDS ORDERED: PROPOFOL 10 MG/ML 20 ML VIAL IV ONE (08:36)
--- NOTE | 2019-12-26 09:09 | P.PCN ---
Date of Procedure: 12/26/19 Description of Procedure: PREOPERATIVE DIAGNOSIS: Personal history colon polyps POSTOPERATIVE DIAGNOSIS: Personal history colon polyps Internal and external hemorrhoids, grade 2 OPERATION: Colonoscopy to the cecum, ileocecal valve and appendiceal orifice. SURGEON: Hamida Flanagan MD. ANESTHESIA: MAC. INDICATIONS: The patient is a 59-year-old female who presents for colonoscopy screening. Last colonoscopy in 5 years. Benefits and risks were described and informed consent was obtained. DESCRIPTION OF PROCEDURE: The patient had undergone Suprep. She had been brought into the operating room and laid in the left lateral decubitus position. After adequate intravenous sedation, the rectum was examined with 2% lidocaine jelly. External hemorrhoids were encountered. The rectal tone was within normal limits. No lesions were palpated in the rectal vault. An Olympus colonoscope was advanced until the cecum, ileocecal valve and appendiceal orifice were clearly viewed. The prep was excellent. No scattered diverticulosis was encountered. No colonic polyps were found. No evidence of focal colitis was found. Retroflexion of the scope demonstrated grade 2 internal hemorrhoids without active bleeding or inflammation. The colon was desufflated. The patient had tolerated the procedure well. Withdrawal time was over 6 minutes. FINDINGS: Aronchick preparation quality scale 1 (1-5) Internal hemorrhoids, grade 2 External prolapsed hemorrhoids, grade 2 No sigmoid diverticulosis No arteriovenous malformations. No adenomatous polyps. No focal colitis. RECOMMENDATIONS: Lower endoscopy in 5 years, 2024 Plan - Discharge Summary Discharge Rx Participant: No New Discharge Prescriptions: Continue Loratadine [Claritin] 10 mg PO DAILY lisinopriL [Zestril] 10 mg PO QAM Cyclobenzaprine [Flexeril] 10 mg PO HS Aspirin 81 mg PO DAILY cloNIDine HCL [Catapres] 0.1 mg PO HS Atorvastatin [Lipitor] 10 mg PO HS Ibuprofen [Motrin] 600 mg PO Q6HR PRN PRN Reason: Pain Cholecalciferol [Vitamin D3 (25 Mcg = 1000 Iu)] 1,000 unit PO DAILY Fluticasone Nasal Rew [Flonase Nasal Rew] 2 spr EA NOSTRIL DAILY Discharge Medication List Aspirin 81 mg PO DAILY 04/27/15 [History] Cyclobenzaprine [Flexeril] 10 mg PO HS 04/27/15 [History] Loratadine [Claritin] 10 mg PO DAILY 04/27/15 [History] lisinopriL [Zestril] 10 mg PO QAM 04/27/15 [History] Atorvastatin [Lipitor] 10 mg PO HS 10/17/16 [History] cloNIDine HCL [Catapres] 0.1 mg PO HS 10/17/16 [History] Cholecalciferol [Vitamin D3 (25 Mcg = 1000 Iu)] 1,000 unit PO DAILY 12/24/19 [History] Fluticasone Nasal Rew [Flonase Nasal Rew] 2 spr EA NOSTRIL DAILY 12/24/19 [History] Ibuprofen [Motrin] 600 mg PO Q6HR PRN 12/24/19 [History] Follow up Appointment(s)/Referral(s): Hamida Flanagan MD [STAFF PHYSICIAN] - As Needed Patient Instructions/Handouts: *Surgery [facility] - (Anesthesia) Endoscopy Discharge Instructions Activity/Diet/Wound Care/Special Instructions: Repeat colonoscopy 5 years, 2024 Discharge Disposition: HOME SELF-CARE
[2019-12-26 09:32] VITALS: BP 125/74; PULSE 77; RESP 16
== END 2019-12-26 09:32 | disposition home or self-care (01) ==
LOC: ORWHC2ENDO 07:15
PROVIDERS: ATTEND Surgery Plastic and Reconstructive Surgery
DX: Z12.11 Encounter for screening for malignant neoplasm of colon (principal); K64.1 Second degree hemorrhoids; K64.8 Other hemorrhoids; Z86.010 Personal history of colon polyps; Z79.82 Long term (current) use of aspirin; Z79.899 Other long term (current) drug therapy; Z88.1 Allergy status to other antibiotic agents; Z88.2 Allergy status to sulfonamides; I10 Essential (primary) hypertension; E78.5 Hyperlipidemia, unspecified; K21.9 Gastro-esophageal reflux disease without esophagitis; Z90.710 Acquired absence of both cervix and uterus; Z98.51 Tubal ligation status; Z98.890 Other specified postprocedural states; Z80.3 Family history of malignant neoplasm of breast; Z80.8 Family history of malignant neoplasm of other organs or systems
CPT/HCPCS: G0105; J2704; 45378

== ENCOUNTER → 2020-04-07 | Outpatient (CLI) | payer OTHER ==
--- NOTE | 2020-04-07 12:02 | XR ---
EXAMINATION TYPE: XR wrist complete BILATERAL DATE OF EXAM: 04/07/2020 COMPARISON: NONE HISTORY: Pain TECHNIQUE: Four views of each wrist are submitted. FINDINGS: The osseous structures are intact. The joint spaces are preserved and there is no acute fracture or dislocation. IMPRESSION: 1. No definite acute fracture or dislocation if symptoms persist, follow-up study in 7 to 10 days wo uld be suggested
== END | disposition home or self-care (01) ==
LOC: RADXRMAIN 11:17
PROVIDERS: ATTEND Family Medicine
DX: M25.532 Pain in left wrist (principal); M25.531 Pain in right wrist

== ENCOUNTER → 2020-07-14 | Outpatient (CLI) | payer OTHER ==
--- NOTE | 2020-07-15 10:29 | MM ---
Reason for exam: screening (asymptomatic). Last mammogram was performed 1 year and 2 months ago. History: Patient is postmenopausal. Family history of breast cancer in mother at age 73 and breast cancer in sister at age 40. Benign MG stereo VAD BX LT of the left breast, July 02, 2013. Physical Findings: A clinical breast exam by your physician is recommended on an annual basis and results should be correlated with mammographic findings. MG 3D Screening Mammo W/Cad Bilateral CC and MLO view(s) were taken. Prior study comparison: May 14, 2019, bilateral MG screening mammo w CAD. March 12, 2018, bilateral MG screening mammo w CAD. There are scattered fibroglandular densities. Previous mammotome biopsy in the left breast. There is no discrete abnormality. ASSESSMENT: Benign, BI-RAD 2 RECOMMENDATION: Routine screening mammogram of both breasts in 1 year.
== END | disposition home or self-care (01) ==
LOC: RADMAMWWP 07:21
PROVIDERS: ATTEND Family Medicine
DX: Z12.31 Encounter for screening mammogram for malignant neoplasm of breast (principal); Z78.0 Asymptomatic menopausal state; Z80.3 Family history of malignant neoplasm of breast
CPT/HCPCS: 77063; 77067

== ENCOUNTER → 2021-09-09 | Outpatient (CLI) | payer OTHER ==
--- NOTE | 2021-09-09 10:52 | BD ---
EXAMINATION TYPE: Axial Bone Density DATE OF EXAM: 09/09/2021 COMPARISON: NONE CLINICAL HISTORY: 61 years year old Female. ICD-10 CODE: E21.0 PRIMARY HYPERPARATHYROIDISM Height: 66.5 Weight: 209.6 FRAX RISK QUESTIONS: Alcohol (3 or more units per day): NO Family History (Parent hip fracture): NO Glucocorticoids (More than 3mos): NO History of Fracture in Adulthood: YES, HUMERUS DUE TO AA Secondary Osteoporosis: 1. Type 1 Diabetes: NO 2. Hyperthyroidism: YES 3. Menopause before 45: YES 4. Malnutrition: NO 5. Chronic liver disease: NO Rheumatoid Arthritis: NO Current Tobacco Use: NO RISK FACTORS HISTORY OF: Hip Fracture (Right/Left): NO Spine Fracture: NO History of Wrist Fracture: NO Surgery to Spine/Hip(right/left)/Wrist (right/left): NO Family History of Osteoporosis: Mother, Brother, SISTER Active: YES Diet low in dairy products/other sources of calcium: YES Postmenopausal woman: YES Take estrogen and/or progesterone medications: NO Lost more than 2 inches in height since high school: NO Frequent falls: NO Poor Health: NO Hyperparathyroidism: YES Adrenal Insufficiency: NO MEDICATIONS: Prednisone or other steroids: NO Thyroid Medications: NO Osteoporosis Medications: NO Additional Medications: ALBUTEROL INHALER, ATORVASTATIN, LISINOPRIL, VIT D, Additional History: EXAM MEASUREMENTS: Bone mineral densitometry was performed using the mSilica System. Bone mineral density as measured about the Lumbar spine is: ----- L1-L4(G/cm2): 0.988 T Score Values are as follows: ----- L1: -2.2 ----- L2: -2.3 ----- L3: -1.6 ----- L4: -0.7 ----- L1-L4: -1.6 BASELINE STUDY Bone mineral density about the R hip (g/cm2): 0.880 Bone mineral density about the L hip (g/cm2): 0.858 T Score values are as follows: -----R Neck: -1.1 -----L Neck: -1.3 -----R Total: -0.8 -----L Total: -1.6 BASELINE STUDY FRAX%s: The graph provided illustrates a 12.1% chance for a major osteoporotic fx and a 0.9% chance f or the hips probability for fx in 10 years time. IMPRESSION: Osteopenia (T Score between -2.5 and -1). There is slightly increased risk of fracture and the patient may be considered for treatment. Re-Screen 2-5 years. NOTE: T-SCORE=SD OF THE YOUNG ADULT MEAN.
== END | disposition home or self-care (01) ==
LOC: RADBDWWP 09:49
PROVIDERS: ATTEND Family Medicine
DX: E21.0 Primary hyperparathyroidism (principal)
CPT/HCPCS: 77080

== ENCOUNTER → 2021-12-03 | Outpatient (CLI) | payer OTHER ==
--- NOTE | 2021-12-03 16:01 | CT ---
INDICATION: Patient age:Female; 61 years old; Reason for study: R06.00 dyspnea; PHH. COMPARISON: CT abdomen pelvis 10/17/2016. TECHNIQUE: Multiple thin axial images were obtained through the chest at selected intervals. Prone and supine im ages were submitted for review. Please note that due to interval acquisition images as defined by hig h-resolution CT protocol the entire lung parenchyma is not evaluated, therefore small nodular densiti es may not be visualized. Evaluation of vascular structures, viscera and lymphatics is limited due t o lack of intravenous contrast administration. One or more CT dose reduction strategies were utilized during this examination. Total DLP 215 mGycm. FINDINGS: LUNGS: Diffuse multifocal patchy subpleural reticular opacities identified. No honeycombing or vania ectural distortion in the lungs. Few scattered ground glass opacities. Mild bibasilar bronchiectasis. No acute area of infiltrate. No discernible pulmonary nodules identified. LARGE AIRWAYS: Central airways are patent. PLEURA: No pleural effusion or thickening. HEART AND PERICARDIUM: Heart is prominent in size. There is no pericardial effusion. MEDIASTINUM AND JOSE: No mediastinal or hilar lymphadenopathy or soft tissue mass. VESSELS: The thoracic aorta is normal in course and caliber. CHEST WALL AND DIAPHRAGM: Normal. LOWER NECK: Normal. UPPER ABDOMEN: Postcholecystectomy. MUSCULOSKELETAL: No acute fracture. 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 Clinical correlation is recommended.
== END | disposition home or self-care (01) ==
LOC: RADCTMAIN 14:19
PROVIDERS: ATTEND Internal Medicine Critical Care Medicine
DX: R06.00 Dyspnea, unspecified (principal)
CPT/HCPCS: 71250

== ENCOUNTER → 2022-03-23 | Outpatient (CLI) | payer OTHER ==
[2022-03-23 14:36] LABS: Basophils # (A) 0.06 X 10*3/uL (0.00-0.10); Basophils % (A) 0.7 %; Eosinophils # (A) 0.07 X 10*3/uL (0.04-0.35); Eosinophils % (A) 0.8 %; HCT 36.5 % (37.2-46.3); HGB 11.8 g/dL (12.0-15.0); Immature Grans, Automated 0.7 %; Lymphocytes # (A) 1.27 X 10*3/uL (0.90-5.00); Lymphocytes % (A) 13.9 %; MCH 27.8 pg (27.0-32.0); MCHC 32.3 g/dL (32.0-37.0); MCV 86.1 fL (80.0-97.0); Mean Platelet Volume 10.1 fL (9.5-12.2); Monocytes # (A) 0.61 X 10*3/uL (0.20-1.00); Monocytes % (A) 6.7 %; NRBC Per 100 WBC 0 /100 WBCS (0.0-0.0); Neutrophils # (A) 7.09 X 10*3/uL (1.80-7.70); Neutrophils % (A) 77.2 %; Platelet Count 394 X 10*3/uL (140-440); RBC 4.24 X 10*6/uL (4.10-5.20); WBC 9.16 X 10*3/uL (4.50-10.00)
[2022-03-23 15:04] LABS: ALT 24 U/L (8-44); AST 18 U/L (13-35); African American GFR (CKD) 92.9 (60.0-200.0); Albumin 4.2 g/dL (3.8-4.9); Albumin/Globulin Ratio 1.62 (1.60-3.17); Alkaline Phosphatase 68 U/L (41-126); BUN/Creat Ratio 16.75 Ratio (12.00-20.00); Blood Urea Nitrogen 13.4 mg/dL (9.0-27.0); Calcium 10.5 mg/dL (8.7-10.3); Carbon Dioxide 28.9 mmol/L (20.0-27.5); Chloride 96 mmol/L (96-109); Chol/HDL Ratio 3.72 Ratio; Globulin 2.6 g/dL (1.6-3.3); Glucose 90 mg/dL (70-110); Non-African American GFR(CKD) 80.1 (60.0-200.0); Potassium 3.4 mmol/L (3.5-5.5); Sodium 137 mmol/L (135-145); Total Protein 6.8 g/dL (6.2-8.2); VLDL Calculation 16.44 mg/dL (5.00-40.00)
== END | disposition home or self-care (01) ==
LOC: LABWHC1 10:16
PROVIDERS: ATTEND Nurse Practitioner Family
DX: I10 Essential (primary) hypertension (principal)
CPT/HCPCS: 36415; 80053; 80061; 84439; 84443; 85025

== ENCOUNTER → 2022-08-04 | Outpatient (CLI) | payer OTHER ==
--- NOTE | 2022-08-05 18:27 | MM ---
Reason for Exam: Screening (asymptomatic). Last mammogram was performed 1 year(s) and 1 month(s) ago. Patient History: Menarche at age 16. First Full-Term at age 22. Left ovary removed at age 50. Right ovary removed at age 50. Hysterectomy at age 50. Postmenopausal. 07/02/2013, Benign Core Biopsy on the left side. Sister had breast cancer, age 40. Mother had breast cancer, age 73. Risk Values: Rosette 5 year model risk: 6.3%. NCI Lifetime model risk: 28.3%. Prior Study Comparison: 05/14/2019 Bilateral Screening Mammogram, [facility]. 07/14/2020 Bilateral Screening Mammogram, [facility]. 07/15/2021 Bilateral MG screening mammo w CAD, [facility]. Tissue Density: There are scattered fibroglandular densities. Findings: Analyzed By CAD. Unchanged upper outer quadrant left breast global asymmetry. Microclip upper outer quadrant left breast from prior biopsy. There is no suspicious group of microcalcifications or new suspicious mass in either breast. Overall Assessment: Benign, BI-RAD 2 Management: Screening Mammogram of both breasts in 1 year. Please see note below in regards to the patient's increased five-year Rosette score as well as increased lifetime risk. Patient should continue monthly self-breast exams. A clinical breast exam by your physician is recommended on an annual basis. This exam should not preclude additional follow-up of suspicious palpable abnormalities. Note on Rsoette scores and lifetime risk: 1. A Rosette score greater than 3% is considered moderate risk. If this is the case, consider specialist referral to assess eligibility for a risk reducing agent. 2. If overall lifetime risk for the development of breast cancer is 20% or higher, the patient may qualify for future screening with alternating mammogram and breast MRI. Electronically signed and approved by: Darrel Rodgers M.D. Radiologist
== END | disposition home or self-care (01) ==
LOC: RADMAMWWP 16:21
PROVIDERS: ATTEND Family Medicine
DX: Z12.31 Encounter for screening mammogram for malignant neoplasm of breast (principal); Z80.3 Family history of malignant neoplasm of breast; Z78.0 Asymptomatic menopausal state
CPT/HCPCS: 77063; 77067

== ENCOUNTER → 2024-06-13 | Outpatient (CLI) | payer OTHER ==
--- NOTE | 2024-06-13 10:26 | MM ---
Reason for Exam: Clinical finding. Last mammogram was performed 1 year(s) and 10 month(s) ago. Patient History: Menarche at age 16. First Full-Term at age 22. Left ovary removed at age 50. Right ovary removed at age 50. Hysterectomy at age 50. Postmenopausal. 07/02/2013, Benign Core Biopsy on the left side. Sister had breast cancer, age 40. Mother had breast cancer, age 73. Risk Values: Rosette 5 year model risk: 6.7%. NCI Lifetime model risk: 26.9%. Prior Study Comparison: 05/14/2019 Bilateral Screening Mammogram, [facility]. 07/14/2020 Bilateral Screening Mammogram, [facility]. 07/15/2021 Bilateral MG screening mammo w CAD, [facility]. 08/04/2022 Bilateral MG 3D screening mammo w/cad, [facility]. Tissue Density: There are scattered areas of fibroglandular density. Findings: Analyzed By CAD. No evidence for mass or distortion. No suspicious microcalcifications. Ultrasound recommended at the site of clinical concern left breast. Clinical correlation is advised. Overall Assessment: Incomplete: need additional imaging evaluation, BI-RAD 0 Management: Diagnostic Breast Ultrasound of the left breast. . Results were given to the patient verbally at the time of exam. Patient should continue monthly self-breast exams. A clinical breast exam by your physician is recommended on an annual basis. This exam should not preclude additional follow-up of suspicious palpable abnormalities. Note on Rosette scores and lifetime risk: 1. A Rosette score greater than 3% is considered moderate risk. If this is the case, consider specialist referral to assess eligibility for a risk reducing agent. 2. If overall lifetime risk for the development of breast cancer is 20% or higher, the patient may qualify for future screening with alternating mammogram and breast MRI. [facility], , 06/13/2024 10:23 AM. Electronically signed and approved by: Brandan Duran M.D. Radiologis
--- NOTE | 2024-06-13 11:02 | USB ---
Reason for Exam: Clinical finding. Patient History: Menarche at age 16. First Full-Term at age 22. Left ovary removed at age 50. Right ovary removed at age 50. Hysterectomy at age 50. Postmenopausal. 07/02/2013, Benign Core Biopsy on the left side. Sister had breast cancer, age 40. Mother had breast cancer, age 73. Risk Values: Rosette 5 year model risk: 6.7%. NCI Lifetime model risk: 26.9%. Technique: Method: Targeted. Prior Study Comparison: 07/14/2020 Bilateral Screening Mammogram, [facility]. 07/15/2021 Bilateral MG screening mammo w CAD, [facility]. 08/04/2022 Bilateral MG 3D screening mammo w/cad, [facility]. Findings: The upper inner quadrant of the left breast, the axilla of the left breast and the retroareolar of the left breast were scanned. Ultrasound was performed of the left breast at the site of clinical concern which corresponds to the left 10:00 position 10 cm from the nipple. A solid or cystic mass is not identified. Clinical correlation is recommended.. Overall Assessment: Negative, BI-RAD 1 Management: Screening Mammogram of both breasts in 1 year. A clinical breast exam by your physician is recommended on an annual basis and results should be correlated with mammographic findings. This exam should not preclude additional follow-up of suspicious palpable abnormalities. Results were given to the patient verbally at the time of exam. [facility], , 06/13/2024 10:59 AM. Electronically signed and approved by: Brandan Duran M.D. Radiologis
== END | disposition home or self-care (01) ==
LOC: RADMAMWWP 09:54
PROVIDERS: ATTEND Family Medicine
DX: N63.20 Unspecified lump in the left breast, unspecified quadrant (principal); R92.323 Mammographic fibroglandular density, bilateral breasts; N64.4 Mastodynia; Z78.0 Asymptomatic menopausal state; Z80.3 Family history of malignant neoplasm of breast
CPT/HCPCS: 77066; 76642; G0279; 77062